=== PATIENT | female | born 1955 | race Caucasian/White ===

== ENCOUNTER → 2017-08-27 | Outpatient (CLI) | payer OTHER ==
[~2017-08-27] MED LIST: AMBIEN 5 MG TABL5 M1 PO; ARIPIPRAZOLE5 MG PO; ASPIR 8181 MG PO; DETROL LA2 MG PO; DICLOFENAC SODI75 MG PO; DULOXETINE HCL30 MG PO; LISINOPRIL-HCT1 EAC2 PO; NORVASC5 MG PO; OMEPRAZOLE20 M2 PO; UNICOMPLEX M TA1 TA1 PO
== END ==
LOC: RAD 09:21
DX: Z12.31 Encounter for screening mammogram for malignant neoplasm of breast (principal)